=== PATIENT | female | born 1995 | race Caucasian/White ===

== ENCOUNTER 2018-12-18 13:55 | Observation (INO) | payer OTHER ==
[~2018-12-18] VITALS: Ht 154.9 cm; Wt 97.1 kg
[2018-12-18] MEDS ORDERED: PREN-380 PO (14:37)
[2018-12-18 14:50] VITALS: BP 117/67
== END 2018-12-18 16:50 | disposition home or self-care (01) ==
LOC: MLD 13:55
PROVIDERS: ADMIT Obstetrics & Gynecology; ATTEND Obstetrics & Gynecology
DX: O26.899 Other specified pregnancy related conditions, unspecified trimester (principal); R10.9 Unspecified abdominal pain; Z3A.00 Weeks of gestation of pregnancy not specified
CPT/HCPCS: 76805; G0378; Q0092

== ENCOUNTER 2018-12-24 19:19 | Inpatient (IN) | payer OTHER ==
[~2018-12-24] VITALS: Ht 157.5 cm; Wt 97.1 kg
[~2018-12-24 19:19] MED LIST: PREN-380 PO
[2018-12-24] MEDS ORDERED: LACTATED RINGERS 1,000 ML IV SCH (21:37)
[2018-12-24] MEDS ORDERED: NALBUPHINE 10 MG/ML AMP IVP PRN (21:40)
[2018-12-24] MEDS ORDERED: OXYTOCIN 10 UNITS/ML VIAL IM SCH (21:40)
[2018-12-24] MEDS ORDERED: LACTATED RINGERS 500 ML IV ONE (21:40)
[2018-12-24] MEDS ORDERED: MISOPROSTOL 25 MCG TAB ONE (21:56)
[2018-12-24] MEDS ORDERED: MISOPROSTOL 25 MCG TAB VG SCH (22:00)
[2018-12-24 22:12] LABS: APPEARANCE,URINE HAZY (CLEAR); BILIRUBIN,URINE NEGATIVE (NEGATIVE); BLOOD, URINE NEGATIVE (NEGATIVE); COLOR,URINE YELLOW (YELLOW); LEUKOCYTE ESTERASE ,URINE 1+ (NEGATIVE); NITRITE, URINE NEGATIVE (NEGATIVE); UGLUCOSE NEGATIVE (NEGATIVE)
[2018-12-24 22:14] LABS: BASOPHILS # (AUTO) 0.1 K/uL (0.00-0.22); BASOPHILS % (AUTO) 0.6 % (0.0-2.0); EOSINOPHILS % (AUTO) 0.5 % (0.0-4.0); HEMATOCRIT 34.2 % (36-48); HEMOGLOBIN 11.5 g/dL (12.0-16.0); LYMPHOCYTES # (AUTO) 1.6 K/uL (2.5-16.5); LYMPHOCYTES % (AUTO) 17.1 % (20.5-51.1); MEAN CORPUSCULAR HEMOGLOBIN 29 pg (27-31); MEAN CORPUSCULAR HGB CONC 34 g/dL (33-37); MEAN CORPUSCULAR VOLUME 85.6 fL (80-94); MONOCYTES # (AUTO) 0.5 K/uL (0.8-1.0); MONOCYTES % (AUTO) 5.4 % (1.7-9.3); NEUTROPHILS # (AUTO) 7.2 K/uL (1.8-7.7); NEUTROPHILS % (AUTO) 76.4 % (42.2-75.2); PLATELET COUNT (AUTO) 364 K/uL (140-450); RED CELL DISTRIBUTION WIDTH 13.1 % (11.6-13.7); WHITE BLOOD COUNT (AUTO) 9.5 K/uL (4.8-10.8)
[2018-12-24 22:16] VITALS: BP 109/67
[2018-12-24 22:21] LABS: RBC,URINE 0-5 /HPF (0-5)
[2018-12-24 22:22] LABS: URINE AMORPHOUS URATE 1+ /HPF (None Seen)
[2018-12-24] MEDS ORDERED: CALCIUM (23:42)
[2018-12-24] MEDS ORDERED: FERR-252 PO (23:42)
[2018-12-25] MEDS ORDERED: BUPIVACAINE 0.125%/NS PREMIX 250 ML ONE ×2 (02:09→22:23)
[2018-12-25] MEDS ORDERED: OXYTOCIN 20 UNITS/LR PREMIX 1,000 ML IV ONE (03:41)
[2018-12-25] MEDS: OXYTOCIN 20 UNITS in LACTATED RINGERS 1,000 ML IV SCH (03:44)
--- NOTE | 2018-12-25 08:14 | NUR ---
PATIENT HAS BEEN SCREENED AND CATEGORIZED LOW NUTRITION RISK. PATIENT WILL BE SEEN WITHIN 7 DAYS OF ADMISSION. 12/31/[address]
[2018-12-25] MEDS ORDERED: MISOPROSTOL 25 MCG TAB ONE (20:23)
[2018-12-25] MEDS ORDERED: MISOPROSTOL 25 MCG TAB VG SCH (22:00)
[2018-12-26] MEDS ORDERED: TERBUTALINE 1 MG/ML VIAL SUBQ ONE (12:31)
[2018-12-26] MEDS ORDERED: ONDANSETRON 4 MG/2 ML VIAL ONE (12:50)
[2018-12-26] MEDS ORDERED: PROPOFOL 200 MG/20 ML VIAL IV ONE (12:50)
[2018-12-26] MEDS ORDERED: KETOROLAC 30 MG/ML VIAL ONE (12:50)
[2018-12-26] MEDS ORDERED: SODIUM BICARBONATE 8.4% PFS 50 MEQ/50 ML SYR IVP ONE (13:10)
[2018-12-26] MEDS ORDERED: LIDOCAINE MPF 2% 100 MG/5 ML VIAL INJ ONE (13:10)
[2018-12-26] MEDS ORDERED: KETAMINE 500 MG/5 ML VIAL ONE (13:33)
[2018-12-26] MEDS ORDERED: MORPHINE PRES FREE 10 MG/10 ML AMP IV ONE (13:34)
[2018-12-26] MEDS ORDERED: MIDAZOLAM 2 MG/ML ORASYR ONE (13:34)
[2018-12-26] MEDS ORDERED: MIDAZOLAM 2 MG/2 ML VIAL ONE (13:36)
[2018-12-26] MEDS ORDERED: OXYTOCIN 20 UNITS in LACTATED RINGERS 1,000 ML IV SCH ×2 (14:48→15:33)
[2018-12-26] MEDS ORDERED: NALOXONE 0.4 MG/ML VIAL IVP PRN ×2 (14:50)
[2018-12-26] MEDS ORDERED: diphenhydrAMINE 50 MG/ML VIAL IVP PRN (14:50)
[2018-12-26] MEDS ORDERED: ONDANSETRON 4 MG/2 ML VIAL IVP PRN (14:50)
[2018-12-26] MEDS ORDERED: KETOROLAC 30 MG/ML VIAL IVP PRN (14:50)
[2018-12-26] MEDS ORDERED: HYDROmorphone 1 MG/ML AMP IVP PRN (15:35)
[2018-12-26] MEDS ORDERED: MEASLES, MUMPS, AND RUBELLA 1 VIAL SQVAC PRN (15:35)
[2018-12-26] MEDS ORDERED: OXYTOCIN 20 UNITS/LR PREMIX 1,000 ML IV ONE (16:25)
[2018-12-26] MEDS ORDERED: ceFAZolin 1,000 MG VIAL ONE (21:09)
[2018-12-26] MEDS: KETOROLAC 30 MG/ML VIAL IVP PRN (21:58)
[2018-12-27] MEDS ORDERED: OXYTOCIN 20 UNITS/LR PREMIX 1,000 ML IV ONE (03:20)
[2018-12-27] MEDS: OXYTOCIN 20 UNITS in LACTATED RINGERS 1,000 ML IV SCH (03:44)
[2018-12-27 08:32] LABS: BASOPHILS % (AUTO) 0.3 % (0.0-2.0); EOSINOPHILS % (AUTO) 0.5 % (0.0-4.0); HEMOGLOBIN 9.2 g/dL (12.0-16.0); LYMPHOCYTES # (AUTO) 1.3 K/uL (2.5-16.5); LYMPHOCYTES % (AUTO) 14.2 % (20.5-51.1); MEAN CORPUSCULAR HEMOGLOBIN 29 pg (27-31); MEAN CORPUSCULAR HGB CONC 34 g/dL (33-37); MEAN CORPUSCULAR VOLUME 86.1 fL (80-94); MONOCYTES # (AUTO) 0.6 K/uL (0.8-1.0); MONOCYTES % (AUTO) 6.1 % (1.7-9.3); NEUTROPHILS # (AUTO) 7.4 K/uL (1.8-7.7); NEUTROPHILS % (AUTO) 78.9 % (42.2-75.2); PLATELET COUNT (AUTO) 273 K/uL (140-450); RED BLOOD CELL COUNT(AUTO) 3.14 MIL/uL (4.20-5.40); RED CELL DISTRIBUTION WIDTH 13.2 % (11.6-13.7); WHITE BLOOD COUNT (AUTO) 9.4 K/uL (4.8-10.8)
[2018-12-27] MEDS: KETOROLAC 30 MG/ML VIAL IVP PRN (08:52)
[2018-12-27] MEDS ORDERED: ACETAMINOPHEN 325 MG TAB PO PRN (22:00)
[2018-12-28] MEDS: SIMETHICONE 80 MG TAB.CHEW PO SCH ×2 (09:00→17:00)
[2018-12-28] MEDS: BISACODYL 5 MG TABEC PO SCH (09:00)
[2018-12-28] MEDS: DOCUSATE SODIUM 100 MG GELCAP PO SCH (09:00)
[2018-12-28] MEDS ORDERED: SODIUM PHOSPHATE 118 ML ENEM RC PRN (09:00)
[2018-12-28] MEDS: IBUPROFEN 600 MG TAB PO PRN ×2 (10:32→18:40)
[2018-12-29] MEDS: BISACODYL 5 MG TABEC PO SCH (09:36)
[2018-12-29] MEDS: SIMETHICONE 80 MG TAB.CHEW PO SCH ×2 (09:36→18:06)
[2018-12-29] MEDS: DOCUSATE SODIUM 100 MG GELCAP PO SCH (09:36)
[2018-12-29] MEDS: IBUPROFEN 600 MG TAB PO PRN (16:38)
[2018-12-30] MEDS: BISACODYL 5 MG TABEC PO SCH (09:57)
[2018-12-30] MEDS: SIMETHICONE 80 MG TAB.CHEW PO SCH (09:58)
[2018-12-30] MEDS: IBUPROFEN 600 MG TAB PO PRN (09:58)
[2018-12-30] MEDS: DOCUSATE SODIUM 100 MG GELCAP PO SCH (09:58)
== END 2018-12-30 14:30 | disposition home or self-care (01) | DRG 540 ==
LOC: MLD 19:19 → MFCC 12-26 16:21
PROVIDERS: ADMIT Obstetrics & Gynecology; ATTEND Obstetrics & Gynecology
PROC: 10D00Z1 Extraction of Products of Conception, Low, Open Approach (ICD-10-PCS; principal; 2018-12-26 12:45)
PROC: 3E0234Z Introduction of Serum, Toxoid and Vaccine into Muscle, Percutaneous Approach (ICD-10-PCS; 2018-12-29)
DX: O76 Abnormality in fetal heart rate and rhythm complicating labor and delivery (principal); R71.0 Precipitous drop in hematocrit; O69.81X0 Labor and delivery complicated by cord around neck, without compression, not applicable or unspecified; Z37.0 Single live birth; O77.0 Labor and delivery complicated by meconium in amniotic fluid; Z3A.40 40 weeks gestation of pregnancy; Z23 Encounter for immunization
CPT/HCPCS: 36415; 51702; 59070; 59200; 81001; 85025; 86592; 86886; 86900; 86901; 86920; 87086; 90707; 90715; J0690; J1885; J2001; J2250; J2270; J2405; J2590; J2704; J3105; J3490; J7060; J7120